=== PATIENT | male | born 1985 | race Caucasian/White ===

== ENCOUNTER 2019-05-24 14:37 | Emergency (ER) | payer OTHER ==
[~2019-05-24] VITALS: Ht 167.6 cm; Wt 77.1 kg
[2019-05-24 14:40] VITALS: BP 126/83
--- NOTE | 2019-05-24 14:50 | NUR ---
PT WAITING IN CHAIR.
--- NOTE | 2019-05-24 15:05 | NUR ---
PATIENT AMBULATED TO BED 12.
[2019-05-24] MEDS ORDERED: KETOROLAC 30 MG/ML VIAL IVP ONE (15:20)
[2019-05-24] MEDS ORDERED: ONDANSETRON 4 MG/2 ML VIAL IVP ONE (15:20)
[2019-05-24] MEDS ORDERED: MORPHINE SULFATE 4 MG/ML SYR IVP ONE (15:20)
--- NOTE | 2019-05-24 15:30 | NUR ---
PTPRESENTS TO ED WITH C/O BACK INJURY AT WORK, UNABLE TO SIT ON THE CHAIR. BODY LEANING TOWARDS RT SIDE WITH VABK MORE MOVED TO LFT SIDE. PT STATES TO HAPPEN IT AT WORK IN [employer]. PAIN 05/10. PT AAO X4, GCS 15, ABLE TO SPEAK WITH FULL COMPLETE SENTENCES. RESPIRATIONS EVEN AND UNLABORED. SKIN WARM/PINK/DRY, +PSC. STATED LOWER BACK PAIN 05/10. VS WNL. MADE AWARE OF PT STATUS. WILL CONTINUE TO ONITOR
[2019-05-24 16:57] VITALS: BP 112/73
--- NOTE | 2019-05-24 16:57 | NUR ---
Patient discharged with v/s stable. Written and verbal after care instructions given and explained. Patient alert, oriented and verbalized understanding of instructions. Ambulatory with steady gait. All questions addressed prior to discharge. ID band removed. Patient advised to follow up with PMD. Rx of NAPROSYN 500 MG, NORCO 5 MG given. Patient educated on indication of medication including possible reaction and side effects. Opportunity to ask questions provided and answered.
== END 2019-05-24 16:57 | disposition home or self-care (01) ==
LOC: MED 14:37
DX: S39.012A Strain of muscle, fascia and tendon of lower back, initial encounter (principal); X50.0XXA Overexertion from strenuous movement or load, initial encounter; Y92.89 Other specified places as the place of occurrence of the external cause; Y93.89 Activity, other specified; Y99.0 Civilian activity done for income or pay
CPT/HCPCS: 96374; 96375; 99283; J1885; J2270; J2405

== ENCOUNTER 2019-10-12 15:05 | Emergency (ER) | payer SELFPAY ==
[~2019-10-12] VITALS: Ht 162.6 cm; Wt 77.1 kg
[2019-10-12 15:11] VITALS: BP 121/66
[2019-10-12] MEDS ORDERED: KETOROLAC 60 MG/2 ML VIAL IM ONE (15:35)
[2019-10-12 17:34] VITALS: BP 114/73
== END 2019-10-12 17:34 | disposition home or self-care (01) ==
LOC: MED 15:05
DX: S16.1XXA Strain of muscle, fascia and tendon at neck level, initial encounter (principal); S20.212A Contusion of left front wall of thorax, initial encounter; V49.59XA Passenger injured in collision with other motor vehicles in traffic accident, initial encounter; Y93.89 Activity, other specified; Y92.89 Other specified places as the place of occurrence of the external cause; Y99.8 Other external cause status
CPT/HCPCS: 71101; 72040; 96372; 99284; J1885